=== PATIENT | female | born 1970 | race Hispanic/Latino ===

== ENCOUNTER 2020-10-28 18:56 | Inpatient (IN) | payer MEDICAID, OTHER ==
[2020-10-28] MEDS ORDERED: MORPHINE 4 MG/1 ML INJ IV ONE (19:41)
[2020-10-28] MEDS ORDERED: SODIUM CHLORIDE 0.9% 1000 ML 1,000 ML IV ONE (19:41)
[2020-10-28] MEDS ORDERED: ONDANSETRON 4 MG/2 ML INJ IV ONE (19:41)
--- NOTE | 2020-10-28 19:50 | Event Note ---
ED Screening Note Date of service: 10/28/20 Time: 19:49 ED Screening Note: 49-year-old female presents to the emergency room for acute right upper quadrant abdominal pain that radiates to her shoulder. Patient admits to nausea but no vomiting. Patient states that she recently traveled. Patient reports her pains a 9 out of 10. This initial assessment/diagnostic orders/clinical plan/treatment(s) is/are subject to change based on patients health status, clinical progression and re- assessment by fellow clinical providers in the ED. Further treatment and workup at subsequent clinical providers discretion. Patient/guardian urged not to elope from the ED as their condition may be serious if not clinically assessed and managed. Initial orders include: CBC CMP urinalysis lipase CT pelvis with contrast ordered IV normal saline morphine 4 mg Zofran 4 mg IV
[2020-10-28] MEDS ORDERED: HYDROmorphone 1 MG/1 ML INJ IV ONE ×2 (20:12→22:59)
[2020-10-28 20:55] LABS: Basophils % (Auto) 0.2 % (0.0-1.8); Eosinophils % (Auto) 0.1 % (0.0-4.3); Hematocrit 33.3 % (30.3-42.9); Hemoglobin 11.5 gm/dl (10.1-14.3); Lymphocytes # (Auto) 1.1 K/mm3 (1.2-5.4); Lymphocytes % (Auto) 5.9 % (13.4-35.0); Mean Corpuscular HGB Conc 35 % (30-34); Mean Corpuscular Volume 93 fl (79-97); Monocytes # (Auto) 0.7 K/mm3 (0.0-0.8); Platelet Count 348 K/mm3 (140-440); Red Blood Count 3.58 M/mm3 (3.65-5.03); Red Cell Distribution Width 12.1 % (13.2-15.2)
[2020-10-28 20:56] LABS: INR 1.04 (0.87-1.13)
--- NOTE | 2020-10-28 20:57 | Emergency Department Report ---
ED Abdominal Pain HPI - General Chief Complaint: Abdominal Pain Stated Complaint: RT RIB PAIN PUI?: No Time Seen by Provider: 10/28/20 20:02 Source: patient Mode of arrival: Ambulatory Limitations: No Limitations - History of Present Illness Initial Comments: The patient was evaluated in the emergency department for symptoms described in the history of present illness. He/she was evaluated in the context of the global COVID-19 pandemic, which necessitated consideration that the patient might be at risk for infection with the virus that causes COVID-19. Institutional protocols and algorithms that pertain to the evaluation of patients at risk for COVID-19 are in a state of rapid change based on information released by regulatory bodies including the CDC and federal and state organizations. These policies and algorithms were followed during the patient's care in the emergency department. Please note that these policies, procedures and recommendations changed on a rapid basis. Patient is a 49-year-old female who is not known to myself previously, who is currently visiting from [place], presenting to the ER today with complaint of right upper quadrant pain that radiates to the back, positive nausea. No heada rony or neck pain. No chest pain. The pain also involves her right shoulder. There is also right lower quadrant abdominal pain. No dysuria. Patient not sure if she is . No leg pain or leg swelling. Does not take oral contraceptives. No hematemesis of bright red blood per rectum. Has never had pain like this before. MD Complaint: abdominal pain -: Gradual, hour(s) Location: RUQ Radiation: back, other (Shoulder) Severity scale (0 -10): 6 Quality: aching, sharp Consistency: constant Improves With: rest Worsens With: movement Associated Symptoms: nausea, anorexia - Related Data Allergies Allergy/AdvReac Type Severity Reaction Status Date / Time No Known Allergies Allergy Verified 10/28/20 19:32 ED Review of Systems ROS: Stated complaint: RT RIB PAIN Other details as noted in HPI Constitutional: malaise Eyes: denies: eye discharge ENT: denies: congestion Respiratory: denies: shortness of breath, SOB with exertion, SOB at rest, wheezing Cardiovascular: denies: chest pain Gastrointestinal: abdominal pain, nausea Genitourinary: denies: dysuria Musculoskeletal: back pain Neurological: weakness Psychiatric: anxiety Hematological/Lymphatic: denies: easy bleeding ED Past Medical Hx - Past Medical History Previous Medical History?: No - Surgical History Past Surgical History?: Yes Additional Surgical History: - Social History Smoking Status: Never Smoker Substance Use Type: None ED Physical Exam - General Limitations: Physical Limitation General appearance: alert, anxious, in distress - Head Head exam: Present: atraumatic, normocephalic - Eye Eye exam: Present: normal appearance, EOMI. Absent: nystagmus - ENT ENT exam: Present: normal exam, normal orophraynx, mucous membranes moist, normal external ear exam - Neck Neck exam: Present: normal inspection, full ROM. Absent: tenderness, meningismus - Respiratory Respiratory exam: Present: normal lung sounds bilaterally. Absent: respiratory distress, wheezes, rales, rhonchi, stridor, decreased breath sounds - Cardiovascular Cardiovascular Exam: Present: normal rhythm, tachycardia, normal heart sounds. Absent: irregular rhythm, systolic murmur, diastolic murmur, rubs, gallop - GI/Abdominal GI/Abdominal exam: Present: soft, tenderness, guarding, rebound, other (There is right upper quadrant tenderness or right lower quadrant tenderness to deep palpation.). Absent: distended, rigid, pulsatile mass - Extremities Exam Extremities exam: Present: normal inspection, full ROM, other (2+ pulses noted in the bilateral upper and lower extremities. There is no palpable cord. negative Homans sign. Muscular compartments are soft. The pelvis is stable.). Absent: pedal edema, calf tenderness - Back Exam Back exam: Present: normal inspection, full ROM, CVA tenderness (R). Absent: tenderness, CVA tenderness (L), paraspinal tenderness, vertebral tenderness - Neurological Exam Neurological exam: Present: alert, other (No facial droop. Tongue midline. Extraocular movements intact bilaterally. Facial sensation intact to light touch in V1, V2, V3 distribution bilaterally. 5 and a 5 strength in 4 extremiti es. Sensation intact to light touch in 4 extremities.) - Psychiatric Psychiatric exam: Present: anxious - Skin Skin exam: Present: warm, dry, intact, normal color. Absent: rash ED Course Vital Signs 10/28/20 10/28/20 19:26 20:48 Temperature 99.0 F 98.3 F Pulse Rate 85 78 Respiratory 18 15 Rate Blood Pressure 119/81 Blood Pressure 139/86 [Left] O2 Sat by Pulse 97 99 Oximetry - Reevaluation(s) Reevaluation #1: 10/28/20 20:56 Differential diagnosis, including but limited to: Cholecystitis, appendicitis, colitis, diverticulitis, renal colic, perforated viscus, perforated diaphragmatic pain Assessment and plan: 49-year-old female, who is afebrile, with reassuring vital signs, not currently tachycardic, tachypneic or hypoxic, PERC negative, with exquisite right-sided abdominal pain, and probable diaphragmatic irritation. I performed transabdominal bedside ultrasound, question of free fluid noted in the hepatic cul-de-sac, patient very tender, not able to tolerate complete examination. We will place IV, start IV fluids, make n.p.o., obtain x-ray the chest, EKG, and emergent CT scan of the abdomen pelvis. Have discussed this plan of care with the patient, who verbalized understanding, and who is amenable to this plan of care. Very high suspicion for intra-abdominal surgical process. 10/28/20 23:00 Patient reassessed multiple times. CT scan shows perirectal abscess. X-ray the chest is clear. We have recommended admission to the medical service with general surgical consultation, for fluids, antibiotics, and supportive care. Page is placed out to general surgery on-call. We are waiting for them to call back. I updated the patient on her laboratory studies, and CT scan findings. She is amenable to hospitalization and admission. We are waiting for general surgical callback. 10/28/20 23:09 Discussed history, physical, pertinent laboratory studies and imaging findings with general surgery on-call, Dr. Johnson. She will see the patient in the morning, and is agreeable with the current plan of care. Admission to the medical service will be undertaken. The internal medicine physician, Dr. Chiang has agreed to admit the patient to his service with general surgery consultation. - Consultations Consultation #1: 10/28/20 23:11 Discussed history, physical, laboratory studies and imaging findings with Dr. Johnson, general surgeon of record. She will follow in consultation ED Medical Decision Making - Lab Data Result diagrams: 10/28/20 Unknown 10/28/20 Unknown Vital Signs 10/28/20 10/28/20 19:26 20:48 Temperature 99.0 F 98.3 F Pulse Rate 85 78 Respiratory 18 15 Rate Blood Pressure 119/81 Blood Pressure 139/86 [Left] O2 Sat by Pulse 97 99 Oximetry Lab Results 10/28/20 10/28/20 Range/Units Unknown Unknown WBC 18.5 H (4.5-11.0) K/mm3 RBC 3.58 L (3.65-5.03) M/mm3 Hgb 11.5 (10.1-14.3) gm/dl Hct 33.3 (30.3-42.9) % MCV 93 (79-97) fl MCH 32 (28-32) pg MCHC 35 H (30-34) % RDW 12.1 L (13.2-15.2) % Plt Count 348 (140-440) K/mm3 Lymph % (Auto) 5.9 L (13.4-35.0) % [place] % (Auto) 4.0 (0.0-7.3) % Eos % (Auto) 0.1 (0.0-4.3) % Baso % (Auto) 0.2 (0.0-1.8) % Lymph # (Auto) 1.1 L (1.2-5.4) K/mm3 [place] # (Auto) 0.7 (0.0-0.8) K/mm3 Eos # (Auto) 0.0 (0.0-0.4) K/mm3 Baso # (Auto) 0.0 (0.0-0.1) K/mm3 Seg Neutrophils % 89.8 H (40.0-70.0) % Seg Neutrophils # 16.6 H (1.8-7.7) K/mm3 PT 13.4 (12.2-14.9) Sec. INR 1.04 (0.87-1.13) - EKG Data -: EKG Interpreted by Ut EKG shows normal: sinus rhythm Rate: normal - EKG Data 10/28/20 20:56 Sinus rhythm, 75 bpm, normal axis, normal intervals, QTC within normal limits, motion artifact. There is poor R wave progression. The EKG is abnormal. The EKG is not a STEMI. - Radiology Data Radiology results: pending, report reviewed, image reviewed CT ABDOMEN AND PELVIS WITH CONTRAST INDICATION / CLINICAL INFORMATION: right sided abd pain. TECHNIQUE: Axial CT images were obtained through the abdomen and pelvis after IV contrast. All CT scans at this location are performed using CT dose reduction for ALARA by means of automated exposure control. COMPARISON: None available. FINDINGS: LOWER CHEST: No significant abnormality. LIVER: No significant abnormality. GALLBLADDER: No significant abnormality. BILE DUCTS: No significant abnormality. PANCREAS: No significant abnormality. SPLEEN: No significant abnormality. ADRENALS: No significant abnormality. RIGHT KIDNEY / URETER: No significant abnormality. LEFT KIDNEY / URETER: Small simple renal cyst noted on the left. STOMACH / SMALL BOWEL: No significant abnormality. No mechanical bowel structure. COLON: There is a 2.9 x 2.1 cm complex fluid collection adjacent to the sigmoid colon/rectal vault on the right (series 2 image 137). APPENDIX: No significant abnormality. PERITONEUM: No pneumoperitoneum. LYMPH NODES: No significant adenopathy. AORTA / ARTERIES: No significant abnormality. IVC / VEINS: No significant abnormality. URINARY BLADDER: No significant abnormality. REPRODUCTIVE ORGANS: Physiologic changes are noted of the uterus and bilateral ovaries. ADDITIONAL FINDINGS: None. SKELETAL SYSTEM: No significant abnormality. IMPRESSION: 1. Well-formed complex fluid collection adjacent to the rectal vault (2.9 x 2.1 cm) on the right with adjacent inflammatory changes and fat stranding is concerning for developing perirectal abscess (series 2 image 137). Signer Name: Vince Browne MD Signed: 10/28/2020 9:44 PM Workstation Name: [id number] Critical care attestation.: If time is entered above; I have spent that time in minutes in the direct care of this critically ill patient, excluding procedure time. ED Disposition Clinical Impression: Acute abdominal pain, Perirectal abscess Disposition: OP ADMIT IP TO THIS HOSP Is pt being admited?: Yes Condition: Good Instructions: Abdominal Pain (ED) Referrals: PRIMARY CARE, [Referring] - 3-5 Days
[2020-10-28 21:04] LABS: Alanine Aminotransferase 7 units/L (7-56); Albumin 4.3 g/dL (3.9-5); Blood Urea Nitrogen 11 mg/dL (7-17); Calcium 9.7 mg/dL (8.4-10.2); Hemolysis Index 0
[2020-10-28 21:06] LABS: BUN/Creatinine Ratio 18
--- NOTE | 2020-10-28 22:04 | XRay Report ---
CHEST 1 VIEW 10/28/2020 8:46 PM INDICATION / CLINICAL INFORMATION: pleuritic pain. COMPARISON: None available. FINDINGS: SUPPORT DEVICES: None. HEART / MEDIASTINUM: No significant abnormality. LUNGS / PLEURA: No significant pulmonary or pleural abnormality. No pneumothorax. ADDITIONAL FINDINGS: No significant additional findings. Prominent bilateral nipple shadows are noted . IMPRESSION: 1. No acute findings. Signer Name: Vince Browne MD Signed: 10/28/2020 10:00 PM Workstation Name: [id number]
--- NOTE | 2020-10-28 22:48 | Cat Scan Report ---
CT ABDOMEN AND PELVIS WITH CONTRAST INDICATION / CLINICAL INFORMATION: right sided abd pain. TECHNIQUE: Axial CT images were obtained through the abdomen and pelvis after IV contrast. All CT scans at this location are performed using CT dose reduction for ALARA by means of automated exposure control. COMPARISON: None available. FINDINGS: LOWER CHEST: No significant abnormality. LIVER: No significant abnormality. GALLBLADDER: No significant abnormality. BILE DUCTS: No significant abnormality. PANCREAS: No significant abnormality. SPLEEN: No significant abnormality. ADRENALS: No significant abnormality. RIGHT KIDNEY / URETER: No significant abnormality. LEFT KIDNEY / URETER: Small simple renal cyst noted on the left. STOMACH / SMALL BOWEL: No significant abnormality. No mechanical bowel structure. COLON: There is a 2.9 x 2.1 cm complex fluid collection adjacent to the sigmoid colon/rectal vault on the right (series 2 image 137). APPENDIX: No significant abnormality. PERITONEUM: No pneumoperitoneum. LYMPH NODES: No significant adenopathy. AORTA / ARTERIES: No significant abnormality. IVC / VEINS: No significant abnormality. URINARY BLADDER: No significant abnormality. REPRODUCTIVE ORGANS: Physiologic changes are noted of the uterus and bilateral ovaries. ADDITIONAL FINDINGS: None. SKELETAL SYSTEM: No significant abnormality. IMPRESSION: 1. Well-formed complex fluid collection adjacent to the rectal vault (2.9 x 2.1 cm) on the right with adjacent inflammatory changes and fat stranding is concerning for developing perirectal abscess (ser ies 2 image 137). Signer Name: Vince Browne MD Signed: 10/28/2020 10:44 PM Workstation Name: [id number]
[2020-10-28] MEDS ORDERED: ERTAPENEM 1 GM in SODIUM CHLORIDE 0.9% 50 ML IV ONE (22:56)
[2020-10-28] MEDS ORDERED: ACETAMINOPHEN 325 MG TAB PO PRN (23:34)
--- NOTE | 2020-10-28 23:42 | History and Physical Report ---
History of Present Illness Date of examination: 10/28/20 Chief complaint: Acute abdominal pain History of present illness: 49-year-old female who is currently visiting from [place] was brought to the ER today with complaint of right upper quadrant pain that radiates to the back. The pain also involves her right shoulder. There is also right lower quadrant abdominal pain. Patient complained of mild nausea, no dysuria. Patient not sure if she is . No leg pain or leg swelling. Does not take oral contraceptives. No hematemesis of bright red blood per rectum. In the emergency room CT scan of the abdomen shows perirectal abscess Medications and Allergies Allergies Allergy/AdvReac Type Severity Reaction Status Date / Time No Known Allergies Allergy Verified 10/28/20 19:32 Active Meds: Active Medications Acetaminophen (Acetaminophen 325 Mg Tab) 650 mg PO Q4H PRN PRN Reason: Pain MILD(1-3)/Fever >100.5/MCALLISTER Famotidine (Famotidine 20 Mg/2 Ml Inj) 20 mg IV BID MOISÉS Dextrose/Sodium Chloride (D5/0.45ns) 1,000 mls @ 100 mls/hr IV DIRECT MOISÉS Piperacillin Sod/Tazobactam Sod (Zosyn/Ns 4.5gm/100ml) 4.5 gm in 100 mls @ 200 mls/hr IV Q8H MOISÉS; Protocol Morphine Sulfate (Morphine 2 Mg/1 Ml Inj) 2 mg IV Q4H PRN PRN Reason: Pain, Moderate (4-6) Ondansetron HCl (Ondansetron 4 Mg/2 Ml Inj) 4 mg IV Q8H PRN PRN Reason: Nausea And Vomiting Sodium Chloride (Sodium Chloride 0.9% 10 Ml Flush Syringe) 10 ml IV BID MOISÉS Sodium Chloride (Sodium Chloride 0.9% 10 Ml Flush Syringe) 10 ml IV PRN PRN PRN Reason: LINE FLUSH Review of Systems Cardiovascular: no chest pain, no orthopnea, no palpitations, no lightheadedness, no shortness of breath Respiratory: no cough, no cough with sputum Gastrointestinal: abdominal pain, nausea Exam - Constitutional Vitals: Temp Pulse Resp BP Pulse Ox 98 F 74 11 L 123/81 98 10/28/20 23:12 10/28/20 23:12 10/28/20 23:12 10/28/20 23:12 10/28/20 23:12 General appearance: Present: no acute distress - EENT Eyes: Present: PERRL ENT: hearing intact, clear oral mucosa - Neck Neck: Present: supple, normal ROM - Respiratory Respiratory effort: normal Respiratory: bilateral: CTA - Cardiovascular Heart Sounds: Present: S1 & S2. Absent: rub, click - Extremities Extremities: pulses symmetrical, No edema Peripheral Pulses: within normal limits - Abdominal General gastrointestinal: Present: soft, tender, normal bowel sounds Localized gastrointestinal: tender: RUQ Female genitourinary: Present: normal - Integumentary Integumentary: Present: clear, warm, dry - Musculoskeletal Musculoskeletal: gait normal, strength equal bilaterally - Psychiatric Psychiatric: appropriate mood/affect, intact judgment & insight - Neurologic Neurologic: CNII-XII intact, moves all extremities Results - Labs CBC & Chem 7: 10/28/20 Unknown 10/28/20 Unknown Labs: Laboratory Last Values WBC 18.5 K/mm3 (4.5-11.0) H 10/28/20 Unknown RBC 3.58 M/mm3 (3.65-5.03) L 10/28/20 Unknown Hgb 11.5 gm/dl (10.1-14.3) 10/28/20 Unknown Hct 33.3 % (30.3-42.9) 10/28/20 Unknown MCV 93 fl (79-97) 10/28/20 Unknown MCH 32 pg (28-32) 10/28/20 Unknown MCHC 35 % (30-34) H 10/28/20 Unknown RDW 12.1 % (13.2-15.2) L 10/28/20 Unknown Plt Count 348 K/mm3 (140-440) 10/28/20 Unknown Lymph % (Auto) 5.9 % (13.4-35.0) L 10/28/20 Unknown [place] % (Auto) 4.0 % (0.0-7.3) 10/28/20 Unknown Eos % (Auto) 0.1 % (0.0-4.3) 10/28/20 Unknown Baso % (Auto) 0.2 % (0.0-1.8) 10/28/20 Unknown Lymph # (Auto) 1.1 K/mm3 (1.2-5.4) L 10/28/20 Unknown [place] # (Auto) 0.7 K/mm3 (0.0-0.8) 10/28/20 Unknown Eos # (Auto) 0.0 K/mm3 (0.0-0.4) 10/28/20 Unknown Baso # (Auto) 0.0 K/mm3 (0.0-0.1) 10/28/20 Unknown Seg Neutrophils % 89.8 % (40.0-70.0) H 10/28/20 Unknown Seg Neutrophils # 16.6 K/mm3 (1.8-7.7) H 10/28/20 Unknown PT 13.4 Sec. (12.2-14.9) 10/28/20 Unknown INR 1.04 (0.87-1.13) 10/28/20 Unknown Sodium 140 mmol/L (137-145) 10/28/20 Unknown Potassium 3.6 mmol/L (3.6-5.0) 10/28/20 Unknown Chloride 100.9 mmol/L (98-107) 10/28/20 Unknown Carbon Dioxide 26 mmol/L (22-30) 10/28/20 Unknown Anion Gap 17 mmol/L 10/28/20 Unknown BUN 11 mg/dL (7-17) 10/28/20 Unknown Creatinine 0.6 mg/dL (0.6-1.2) 10/28/20 Unknown Estimated GFR > 60 ml/min 10/28/20 Unknown BUN/Creatinine Ratio 18 % 10/28/20 Unknown Glucose 115 mg/dL (65-100) H 10/28/20 Unknown Calcium 9.7 mg/dL (8.4-10.2) 10/28/20 Unknown Total Bilirubin 0.30 mg/dL (0.1-1.2) 10/28/20 Unknown AST 10 units/L (5-40) 10/28/20 Unknown ALT 7 units/L (7-56) 10/28/20 Unknown Alkaline Phosphatase 71 units/L (35-129) 10/28/20 Unknown Total Protein 7.0 g/dL (6.3-8.2) 10/28/20 Unknown Albumin 4.3 g/dL (3.9-5) 10/28/20 Unknown Albumin/Globulin Ratio 1.6 % 10/28/20 Unknown Lipase 20 units/L (13-60) 10/28/20 Unknown HCG, Quant < 4.0 mIU/mL (0-4) 10/28/20 Unknown - Imaging and Cardiology CT scan - abdomen: image reviewed Assessment and Plan - Patient Problems (1) Acute abdominal pain Current Visit: Yes Status: Acute Plan to address problem: Admit the patient to the medical telemetry. N.p.o. IV fluid D5 half-normal saline at the rate of 100 cc/h. Pepcid 20 mg IV every 12 hours. Morphine 2 mg IV every 4 hours as needed. Zofran 4 mg IV every 6 hours as needed. Zosyn 4.5 g IV every 8 hours. Metronidazole 500 mg IV every 8 hours. We consulted surgery for further evaluation and treatment. SCD for DVT prophylaxis. Pepcid for GI prophylaxis. Recheck CBC BMP in the morning (2) Perirectal abscess Current Visit: Yes Status: Acute Plan to address problem: Admit the patient to the medical telemetry. N.p.o. IV fluid D5 half-normal sali ne at the rate of 100 cc/h. Pepcid 20 mg IV every 12 hours. Morphine 2 mg IV every 4 hours as needed. Zofran 4 mg IV every 6 hours as needed. Zosyn 4.5 g IV every 8 hours. Metronidazole 500 mg IV every 8 hours. We consulted surgery for further evaluation and treatment. SCD for DVT prophylaxis. Pepcid for GI prophylaxis. Recheck CBC BMP in the morning
[2020-10-29] MEDS ORDERED: HYDROmorphone 1 MG/1 ML INJ IV ONE (00:20)
[2020-10-29] MEDS ORDERED: METOCLOPRAMIDE 10 MG/2 ML INJ IV ONE (00:20)
[2020-10-29] MEDS: ONDANSETRON 4 MG/2 ML INJ IV PRN ×2 (00:28→04:26)
[2020-10-29] MEDS: PIPERACIL/TAZOBACTA 4.5/NS 100 4.5 GM/100 ML VIAL IV SCH ×3 (01:30→16:37)
[2020-10-29] MEDS: metroNIDAZOLE/NS 500 MG/100 ML 500 MG/100 ML BAG IV SCH ×2 (02:55→09:41)
[2020-10-29] MEDS: D5W/0.45% NACL 1,000 ML IV SCH ×2 (04:21→14:37)
[2020-10-29] MEDS: MORPHINE 2 MG/1 ML INJ IV PRN (04:22)
[2020-10-29 06:36] LABS: Basophils # (Auto) 0.1 K/mm3 (0.0-0.1); Basophils % (Auto) 0.5 % (0.0-1.8); Eosinophils % (Auto) 0.3 % (0.0-4.3); Hematocrit 31.4 % (30.3-42.9); Hemoglobin 10.6 gm/dl (10.1-14.3); Lymphocytes # (Auto) 1.1 K/mm3 (1.2-5.4); Lymphocytes % (Auto) 8.7 % (13.4-35.0); Mean Corpuscular HGB Conc 34 % (30-34); Mean Corpuscular Volume 95 fl (79-97); Monocytes # (Auto) 0.5 K/mm3 (0.0-0.8); Monocytes % (Auto) 3.9 % (0.0-7.3); Platelet Count 301 K/mm3 (140-440); Red Blood Count 3.32 M/mm3 (3.65-5.03); Red Cell Distribution Width 12.3 % (13.2-15.2)
[2020-10-29 06:57] LABS: Blood Urea Nitrogen 10 mg/dL (7-17); Calcium 8.9 mg/dL (8.4-10.2); Hemolysis Index 4
[2020-10-29 06:58] LABS: BUN/Creatinine Ratio 17
[2020-10-29] MEDS: FAMOTIDINE 20 MG/2 ML INJ IV SCH ×2 (09:41→22:00)
--- NOTE | 2020-10-29 10:57 | Event Note ---
Date: 10/29/20 NPO after MN except sips of water with meds. Reviewed CT scan. Fluid is NOT well organized. Fluid is partially loculated pelvic fluid near the uterus. Per Dr. Johnson, history of abnormal discharge from the vagina. Consider pelvic ultrasound with transvaginal ultrasound. ?PID CT guided drainage/aspiration of the pelvic fluid collection tomorrow.
--- NOTE | 2020-10-29 11:11 | Consultation ---
History of Present Illness Consult date: 10/29/20 Reason for consult: abdominal pain Chief complaint: abdominal pain - History of present illness History of present illness: 49 year old female who presented to the ED with a two day hx of worsening abdomi nal pain that she says is most severe in the RUQ that radiates to her right shoulder. She was having some RLQ abdominal pain and was seen by a wheat grower because she has having green discharge from her vagina about a week ago for which she was placed on abx. She says that the discharge was cultured and to her knowledge did not grow anything. the discharge returned. She denies rectal or buttock pain. She had a CT scan that was read as having a 2x3cm abscess by in between the rectum and sigmoid colon. Past History Past Medical History: other (endometriosis) Past Surgical History: Social history: no significant social history Medications and Allergies Allergies Allergy/AdvReac Type Severity Reaction Status Date / Time No Known Allergies Allergy Verified 10/28/20 19:32 Home Medications Medication Instructions Recorded Confirmed Last Taken Type No Known Home Medications [No 10/29/20 10/29/20 Unknown History Reported Home Medications] Active Meds: Active Medications Acetaminophen (Acetaminophen 325 Mg Tab) 650 mg PO Q4H PRN PRN Reason: Pain MILD(1-3)/Fever >100.5/MCALLISTER Famotidine (Famotidine 20 Mg/2 Ml Inj) 20 mg IV BID [facility] Last Admin: 10/29/20 09:41 Dose: 20 mg Documented by: Dextrose/Sodium Chloride (D5/0.45ns) 1,000 mls @ 100 mls/hr IV DIRECT MOISÉS Last Admin: 10/29/20 04:21 Dose: 100 mls/hr Documented by: Piperacillin Sod/Tazobactam Sod (Zosyn/Ns 4.5gm/100ml) 4.5 gm in 100 mls @ 200 mls/hr IV Q8H MOISÉS; Protocol Last Admin: 10/29/20 09:40 Dose: 200 mls/hr Documented by: Ketorolac Tromethamine (Ketorolac 30 Mg/1 Ml Inj) 30 mg IV Q6HR MOISÉS Stop: 11/03/20 11:59 Morphine Sulfate (Morphine 2 Mg/1 Ml Inj) 2 mg IV Q4H PRN PRN Reason: Pain, Moderate (4-6) Last Admin: 10/29/20 04:22 Dose: 2 mg Documented by: Ondansetron HCl (Ondansetron 4 Mg/2 Ml Inj) 4 mg IV Q8H PRN PRN Reason: Nausea And Vomiting Last Admin: 10/29/20 04:26 Dose: 4 mg Documented by: Sodium Chloride (Sodium Chloride 0.9% 10 Ml Flush Syringe) 10 ml IV BID MOISÉS Last Admin: 10/29/20 09:41 Dose: 10 ml Documented by: Sodium Chloride (Sodium Chloride 0.9% 10 Ml Flush Syringe) 10 ml IV PRN PRN PRN Reason: LINE FLUSH Review of Systems - Constitutional no weight loss, no fever, no chills - Cardiovascular no chest pain - Respiratory no cough - Gastrointestinal abdominal pain, no nausea, no vomiting Exam Vital Signs Temp Pulse Resp BP Pulse Ox 99.0 F 85 18 119/81 97 10/28/20 19:26 10/28/20 19:26 10/28/20 19:26 10/28/20 19:26 10/28/20 19:26 - General physical appearance Positive: well developed, no distress, moderate pain - Respiratory Positive: normal expansion - Cardiovascular Rhythm: regular - Extremities Extremities: no ischemia - Abdomen Abdomen: Present: soft, other (mild tenderness in the right lower quadrant. tender to palaption in the RUQ, right costal area.). Absent: guarding, rigid Results - Labs 10/29/20 05:51 10/29/20 05:51 Abnormal lab results 10/28/20 10/28/20 10/29/20 Range/Units Unknown Unknown 01:09 WBC 18.5 H (4.5-11.0) K/mm3 RBC 3.58 L (3.65-5.03) M/mm3 MCHC 35 H (30-34) % RDW 12.1 L (13.2-15.2) % Lymph % (Auto) 5.9 L (13.4-35.0) % Lymph # (Auto) 1.1 L (1.2-5.4) K/mm3 Seg Neutrophils % 89.8 H (40.0-70.0) % Seg Neutrophils # 16.6 H (1.8-7.7) K/mm3 Glucose 115 H (65-100) mg/dL Lactic Acid 0.50 L (0.7-2.0) mmol/L 10/29/20 10/29/20 Range/Units 05:51 05:51 WBC 12.1 H (4.5-11.0) K/mm3 RBC 3.32 L (3.65-5.03) M/mm3 MCHC (30-34) % RDW 12.3 L (13.2-15.2) % Lymph % (Auto) 8.7 L (13.4-35.0) % Lymph # (Auto) 1.1 L (1.2-5.4) K/mm3 Seg Neutrophils % 86.6 H (40.0-70.0) % Seg Neutrophils # 10.5 H (1.8-7.7) K/mm3 Glucose 144 H (65-100) mg/dL Lactic Acid (0.7-2.0) mmol/L Diabetes panel 10/28/20 10/29/20 Range/Units Unknown 05:51 Sodium 140 142 (137-145) mmol/L Potassium 3.6 3.6 (3.6-5.0) mmol/L Chloride 100.9 104.6 (98-107) mmol/L Carbon Dioxide 26 28 (22-30) mmol/L BUN 11 10 (7-17) mg/dL Creatinine 0.6 0.6 (0.6-1.2) mg/dL Glucose 115 H 144 H (65-100) mg/dL Calcium 9.7 8.9 (8.4-10.2) mg/dL AST 10 (5-40) units/L ALT 7 (7-56) units/L Alkaline Phosphatase 71 (35-129) units/L Total Protein 7.0 (6.3-8.2) g/dL Albumin 4.3 (3.9-5) g/dL Calcium panel 10/28/20 10/29/20 Range/Units Unknown 05:51 Calcium 9.7 8.9 (8.4-10.2) mg/dL Albumin 4.3 (3.9-5) g/dL Pituitary panel 10/28/20 10/29/20 Range/Units Unknown 05:51 Sodium 140 142 (137-145) mmol/L Potassium 3.6 3.6 (3.6-5.0) mmol/L Chloride 100.9 104.6 (98-107) mmol/L Carbon Dioxide 26 28 (22-30) mmol/L BUN 11 10 (7-17) mg/dL Creatinine 0.6 0.6 (0.6-1.2) mg/dL Glucose 115 H 144 H (65-100) mg/dL Calcium 9.7 8.9 (8.4-10.2) mg/dL Adrenal panel 10/28/20 10/29/20 Range/Units Unknown 05:51 Sodium 140 142 (137-145) mmol/L Potassium 3.6 3.6 (3.6-5.0) mmol/L Chloride 100.9 104.6 (98-107) mmol/L Carbon Dioxide 26 28 (22-30) mmol/L BUN 11 10 (7-17) mg/dL Creatinine 0.6 0.6 (0.6-1.2) mg/dL Glucose 115 H 144 H (65-100) mg/dL Calcium 9.7 8.9 (8.4-10.2) mg/dL Total Bilirubin 0.30 (0.1-1.2) mg/dL AST 10 (5-40) units/L ALT 7 (7-56) units/L Alkaline Phosphatase 71 (35-129) units/L Total Protein 7.0 (6.3-8.2) g/dL Albumin 4.3 (3.9-5) g/dL - Imaging CT scan - abdomen: report reviewed, image reviewed CT scan - pelvis: report reviewed, image reviewed Assessment and Plan 49 year old female with right upper and lower quadrant pain. unclear etiology. Afebrile stable with decreasing leukocytosis. I spoke with Dr. Gurrola (IR) to review images for possible IR drainage, as there are no clinical signs of abscess collection able to be drained from the perineum, also she has no pain, swelling or drainage in the area. He evaluated the images and disagrees with the overnight read. He said there is no loculated per-rectal abscess, or colon-rectal inflammation. He did notice some fluid in the pelvis that is amorphous and could be blood vs other fluid but suspects it to be drafter commercial in etiology. He noted the gallbladder looked unremarkable with no signs if inflammation. He asked that i get a pelvic US today to further study the pelvis and he will take down tomorrow for aspiration of the fluid. discussed with pt who is agre eable with the plan. continue abx. No surgical intervention planned at this time will continue to zeyad villalpando.
[2020-10-29 11:42] LABS: Bilirubin,Urine NEG (Negative); Blood,Urine NEG (Negative); Color,Urine Yellow (Yellow); Mucus,Urine FEW /HPF; Urobilinogen,Urine < 2.0 mg/dL (<2.0)
[2020-10-29 11:47] LABS: WBC,Urine > 182.0 /HPF (0.0-6.0)
[2020-10-29] MEDS: KETOROLAC 30 MG/1 ML INJ IV SCH ×2 (14:37→18:45)
--- NOTE | 2020-10-29 15:59 | Progress Note ---
Assessment and Plan Assessment and plan: 49-year-old female who is currently visiting from [place] was brought to the ER today with complaint of right upper quadrant pain that radiates to the back. The pain also involves her right shoulder. There is also right lower quadrant abdominal pain. Patient complained of mild nausea, no dysuria. Patient not sure if she is . No leg pain or leg swelling. Does not take oral contraceptives. No hematemesis of bright red blood per rectum. In the emergency room CT scan of the abdomen shows perirectal abscess 10/29: Patient to be evaluated by surgery and interventional radiology. 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 Nevertheless an ultrasound of the pelvic is being obtained and possible aspiration of fluids tomorrow. We will continue with antibiotics at this point no surgical intervention otherwise planned at this time. Patient denies any past medical condition denies use of any home medication. Plan of care discussed with the patient in detail patient verbalized understanding. (1) Acute abdominal pain Current Visit: Yes Status: Acute Plan to address problem: Patient was admitted to the hospital started on antibiotics and fluids as documented. Pepcid 20 mg IV every 12 hours. Morphine 2 mg IV every 4 hours as needed. Zofran 4 mg IV every 6 hours as needed. Zosyn 4.5 g IV every 8 hours. Metronidazole 500 mg IV every 8 hours. We consulted surgery for further evaluation and treatment. SCD for DVT prophylaxis. Pepcid for GI prophylaxis. Recheck CBC BMP in the morning (2) Perirectal abscess Current Visit: Yes Status: Acute Plan to address problem: (3) DVT and GI prophylaxis History Interval history: Patient seen and examined, continued with mild abdominal discomfort. Otherwise no fever noted. Hospitalist Physical - Physical exam Narrative exam: VITAL SIGNS: Reviewed. GENERAL: The patient appears normally developed, mild cachexia vital signs as documented. HEAD: No signs of head trauma. EYES: Pupils are equal. Extraocular motions intact. EARS: Hearing grossly intact. MOUTH: Oropharynx is normal. NECK: No adenopathy, no JVD. CHEST: Chest with clear breath sounds bilaterally. No wheezes, rales, or rhonchi. CARDIAC: Regular rate and rhythm. S1 and S2, without murmurs, gallops, or rubs. VASCULAR: No Edema. Peripheral pulses normal and equal in all extremities. ABDOMEN: Soft, mild tenderness but non distended. No rebound or guarding, and no masses palpated. Bowel Sounds normal. MUSCULOSKELETAL: Good range of motion of all major joints. Extremities without clubbing, cyanosis or edema. NEUROLOGIC EXAM: Alert and oriented x 3 No focal sensory or strength deficits. Speech normal. Follows commands. PSYCHIATRIC: Mood normal. SKIN: detail exam as documented in skin assessment - Constitutional Vitals: Temp Pulse Resp BP Pulse Ox 98.3 F 64 16 117/65 100 10/29/20 12:14 10/29/20 12:14 10/29/20 12:14 10/29/20 12:14 10/29/20 12:14 General appearance: Present: no acute distress Results - Labs CBC & Chem 7: 10/29/20 05:51 10/29/20 05:51 Labs: Laboratory Last Values WBC 12.1 K/mm3 (4.5-11.0) H 10/29/20 05:51 RBC 3.32 M/mm3 (3.65-5.03) L 10/29/20 05:51 Hgb 10.6 gm/dl (10.1-14.3) 10/29/20 05:51 Hct 31.4 % (30.3-42.9) 10/29/20 05:51 MCV 95 fl (79-97) 10/29/20 05:51 MCH 32 pg (28-32) 10/29/20 05:51 MCHC 34 % (30-34) 10/29/20 05:51 RDW 12.3 % (13.2-15.2) L 10/29/20 05:51 Plt Count 301 K/mm3 (140-440) 10/29/20 05:51 Lymph % (Auto) 8.7 % (13.4-35.0) L 10/29/20 05:51 [place] % (Auto) 3.9 % (0.0-7.3) 10/29/20 05:51 Eos % (Auto) 0.3 % (0.0-4.3) 10/29/20 05:51 Baso % (Auto) 0.5 % (0.0-1.8) 10/29/20 05:51 Lymph # (Auto) 1.1 K/mm3 (1.2-5.4) L 10/29/20 05:51 [place] # (Auto) 0.5 K/mm3 (0.0-0.8) 10/29/20 05:51 Eos # (Auto) 0.0 K/mm3 (0.0-0.4) 10/29/20 05:51 Baso # (Auto) 0.1 K/mm3 (0.0-0.1) 10/29/20 05:51 Seg Neutrophils % 86.6 % (40.0-70.0) H 10/29/20 05:51 Seg Neutrophils # 10.5 K/mm3 (1.8-7.7) H 10/29/20 05:51 PT 13.4 Sec. (12.2-14.9) 10/28/20 Unknown INR 1.04 (0.87-1.13) 10/28/20 Unknown Sodium 142 mmol/L (137-145) 10/29/20 05:51 Potassium 3.6 mmol/L (3.6-5.0) 10/29/20 05:51 Chloride 104.6 mmol/L (98-107) 10/29/20 05:51 Carbon Dioxide 28 mmol/L (22-30) 10/29/20 05:51 Anion Gap 13 mmol/L 10/29/20 05:51 BUN 10 mg/dL (7-17) 10/29/20 05:51 Creatinine 0.6 mg/dL (0.6-1.2) 10/29/20 05:51 Estimated GFR > 60 ml/min 10/29/20 05:51 BUN/Creatinine Ratio 17 % 10/29/20 05:51 Glucose 144 mg/dL (65-100) H 10/29/20 05:51 Lactic Acid 0.50 mmol/L (0.7-2.0) L 10/29/20 01:09 Calcium 8.9 mg/dL (8.4-10.2) 10/29/20 05:51 Total Bilirubin 0.30 mg/dL (0.1-1.2) 10/28/20 Unknown AST 10 units/L (5-40) 10/28/20 Unknown ALT 7 units/L (7-56) 10/28/20 Unknown Alkaline Phosphatase 71 units/L (35-129) 10/28/20 Unknown Total Protein 7.0 g/dL (6.3-8.2) 10/28/20 Unknown Albumin 4.3 g/dL (3.9-5) 10/28/20 Unknown Albumin/Globulin Ratio 1.6 % 10/28/20 Unknown Lipase 20 units/L (13-60) 10/28/20 Unknown HCG, Quant < 4.0 mIU/mL (0-4) 10/28/20 Unknown Urine Color Yellow (Yellow) 10/29/20 Unknown Urine Turbidity Cloudy (Clear) 10/29/20 Unknown Urine pH 6.0 (5.0-7.0) 10/29/20 Unknown Ur Specific [place] 1.029 (1.003-1.030) 10/29/20 Unknown Urine Protein 30 mg/dl mg/dL (Negative) 10/29/20 Unknown Urine Glucose (UA) Neg mg/dL (Negative) 10/29/20 Unknown Urine Ketones 20 mg/dL (Negative) 10/29/20 Unknown Urine Blood Neg (Negative) 10/29/20 Unknown Urine Nitrite Neg (Negative) 10/29/20 Unknown Urine Bilirubin Neg (Negative) 10/29/20 Unknown Urine Urobilinogen < 2.0 mg/dL (<2.0) 10/29/20 Unknown Ur Leukocyte Esterase Lg (Negative) 10/29/20 Unknown Urine WBC (Auto) > 182.0 /HPF (0.0-6.0) H 10/29/20 Unknown Urine RBC (Auto) 6.0 /HPF (0.0-6.0) 10/29/20 Unknown U Epithel Cells (Auto) 2.0 /HPF (0-13.0) 10/29/20 Unknown Urine WBC Clumps 2+ /HPF 10/29/20 Unknown Urine Mucus Few /HPF 10/29/20 Unknown Blood Type A POSITIVE 10/29/20 01:11 Antibody Screen Negative 10/29/20 01:11 Microbiology: Microbiology 10/29/20 01:09 Peripheral/Venous Blood Culture - Preliminary Culture in Progress 10/29/20 01:44 Peripheral/Venous Blood Culture - Preliminary Culture in Progress Garrett/IV: Voiding Method Toilet Active Medications - Current Medications Current Medications: Generic Name Dose Route Start Last Admin Trade Name Freq PRN Reason Stop Dose Admin Acetaminophen 650 mg 10/28/20 23:34 Acetaminophen 325 Mg Tab PO Q4H PRN Pain MILD(1-3)/Fever >100.5/MCALLISTER Famotidine 20 mg 10/29/20 08:00 10/29/20 09:41 Famotidine 20 Mg/2 Ml Inj IV 20 mg BID MOISÉS Administration Dextrose/Sodium Chloride 1,000 mls @ 100 mls/hr 10/28/20 23:45 10/29/20 14:37 D5/0.45ns IV 100 mls/hr DIRECT MOISÉS Administration Piperacillin Sod/Tazobactam Sod 4.5 gm in 100 mls @ 200 mls/hr 10/29/20 00:00 10/29/20 09:40 Zosyn/Ns 4.5gm/100ml IV 200 mls/hr Q8H MOISÉS Administration Protocol Ketorolac Tromethamine 30 mg 10/29/20 12:00 10/29/20 14:37 Ketorolac 30 Mg/1 Ml Inj IV 11/03/20 11:59 30 mg Q6HR MOISÉS Administration Morphine Sulfate 2 mg 10/28/20 23:34 10/29/20 04:22 Morphine 2 Mg/1 Ml Inj IV 2 mg Q4H PRN Administration Pain, Moderate (4-6) Ondansetron HCl 4 mg 10/28/20 23:34 10/29/20 04:26 Ondansetron 4 Mg/2 Ml Inj IV 4 mg Q8H PRN Administration Nausea And Vomiting Sodium Chloride 10 ml 10/28/20 23:45 10/29/20 09:41 Sodium Chloride 0.9% 10 Ml Flush Syringe IV 10 ml BID MOISÉS Administration Sodium Chloride 10 ml 10/28/20 23:34 Sodium Chloride 0.9% 10 Ml Flush Syringe IV PRN PRN LINE FLUSH
[2020-10-30] MEDS: KETOROLAC 30 MG/1 ML INJ IV SCH ×5 (00:20→23:33)
[2020-10-30] MEDS: PIPERACIL/TAZOBACTA 4.5/NS 100 4.5 GM/100 ML VIAL IV SCH ×4 (00:21→23:31)
--- NOTE | 2020-10-30 08:21 | Progress Note ---
Assessment and Plan Assessment and plan: 49-year-old female who is currently visiting from [place] was brought to the ER today with complaint of right upper quadrant pain that radiates to the back. The pain also involves her right shoulder. There is also right lower quadrant abdominal pain. Patient complained of mild nausea, no dysuria. Patient not sure if she is . No leg pain or leg swelling. Does not take oral contraceptives. No hematemesis of bright red blood per rectum. In the emergency room CT scan of the abdomen shows perirectal abscess 10/29: Patient to be evaluated by surgery and interventional radiology. 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 Nevertheless an ultrasound of the pelvic is being obtained and possible aspiration of fluids tomorrow. We will continue with antibiotics at this point no surgical intervention otherwise planned at this time. Patient denies any past medical condition denies use of any home medication. Plan of care discussed with the patient in detail patient verbalized understanding. 10/30: Patient was for CT-guided drainage. This was done under CT with no complication noted. Will await cultures at this time and discussed with surgeon for next steps. Plan discussed with the patient agrees with treatment plan continues on antibiotics at this (1) Acute abdominal pain Current Visit: Yes Status: Acute Plan to address problem: Patient was admitted to the hospital started on antibiotics and fluids as documented. Pepcid 20 mg IV every 12 hours. Morphine 2 mg IV every 4 hours as needed. Zofran 4 mg IV every 6 hours as needed. Zosyn 4.5 g IV every 8 hours. Metronidazole 500 mg IV every 8 hours. We consulted surgery for further evaluation and treatment. SCD for DVT prophylaxis. Pepcid for GI prophylaxis. Recheck CBC BMP in the morning (2) Perirectal abscess Current Visit: Yes Status: Acute Plan to address problem: (3) DVT and GI prophylaxis History Interval history: Patient seen and examined, continued with mild abdominal discomfort but much improved no fever noted. White count improved Hospitalist Physical - Physical exam Narrative exam: VITAL SIGNS: Reviewed. GENERAL: The patient appears normally developed, mild cachexia vital signs as documented. HEAD: No signs of head trauma. EYES: Pupils are equal. Extraocular motions intact. EARS: Hearing grossly intact. MOUTH: Oropharynx is normal. NECK: No adenopathy, no JVD. CHEST: Chest with clear breath sounds bilaterally. No wheezes, rales, or rhonchi. CARDIAC: Regular rate and rhythm. S1 and S2, without murmurs, gallops, or rubs. VASCULAR: No Edema. Peripheral pulses normal and equal in all extremities. ABDOMEN: Soft, mild tenderness but non distended. No rebound or guarding, and no masses palpated. Bowel Sounds normal. MUSCULOSKELETAL: Good range of motion of all major joints. Extremities without clubbing, cyanosis or edema. NEUROLOGIC EXAM: Alert and oriented x 3 No focal sensory or strength deficits. Speech normal. Follows commands. PSYCHIATRIC: Mood normal. SKIN: detail exam as documented in skin assessment - Constitutional Vitals: Temp Pulse Resp BP Pulse Ox 98.6 F 68 18 127/70 98 10/30/20 07:08 10/30/20 07:08 10/30/20 07:08 10/30/20 07:08 10/30/20 07:08 General appearance: Present: no acute distress Results - Labs CBC & Chem 7: 10/30/20 08:55 10/29/20 05:51 Labs: Laboratory Last Values WBC 12.1 K/mm3 (4.5-11.0) H 10/29/20 05:51 RBC 3.32 M/mm3 (3.65-5.03) L 10/29/20 05:51 Hgb 10.6 gm/dl (10.1-14.3) 10/29/20 05:51 Hct 31.4 % (30.3-42.9) 10/29/20 05:51 MCV 95 fl (79-97) 10/29/20 05:51 MCH 32 pg (28-32) 10/29/20 05:51 MCHC 34 % (30-34) 10/29/20 05:51 RDW 12.3 % (13.2-15.2) L 10/29/20 05:51 Plt Count 301 K/mm3 (140-440) 10/29/20 05:51 Lymph % (Auto) 8.7 % (13.4-35.0) L 10/29/20 05:51 [place] % (Auto) 3.9 % (0.0-7.3) 10/29/20 05:51 Eos % (Auto) 0.3 % (0.0-4.3) 10/29/20 05:51 Baso % (Auto) 0.5 % (0.0-1.8) 10/29/20 05:51 Lymph # (Auto) 1.1 K/mm3 (1.2-5.4) L 10/29/20 05:51 [place] # (Auto) 0.5 K/mm3 (0.0-0.8) 10/29/20 05:51 Eos # (Auto) 0.0 K/mm3 (0.0-0.4) 10/29/20 05:51 Baso # (Auto) 0.1 K/mm3 (0.0-0.1) 10/29/20 05:51 Seg Neutrophils % 86.6 % (40.0-70.0) H 10/29/20 05:51 Seg Neutrophils # 10.5 K/mm3 (1.8-7.7) H 10/29/20 05:51 PT 13.4 Sec. (12.2-14.9) 10/28/20 Unknown INR 1.04 (0.87-1.13) 10/28/20 Unknown Sodium 142 mmol/L (137-145) 10/29/20 05:51 Potassium 3.6 mmol/L (3.6-5.0) 10/29/20 05:51 Chloride 104.6 mmol/L (98-107) 10/29/20 05:51 Carbon Dioxide 28 mmol/L (22-30) 10/29/20 05:51 Anion Gap 13 mmol/L 10/29/20 05:51 BUN 10 mg/dL (7-17) 10/29/20 05:51 Creatinine 0.6 mg/dL (0.6-1.2) 10/29/20 05:51 Estimated GFR > 60 ml/min 10/29/20 05:51 BUN/Creatinine Ratio 17 % 10/29/20 05:51 Glucose 144 mg/dL (65-100) H 10/29/20 05:51 Lactic Acid 0.50 mmol/L (0.7-2.0) L 10/29/20 01:09 Calcium 8.9 mg/dL (8.4-10.2) 10/29/20 05:51 Total Bilirubin 0.30 mg/dL (0.1-1.2) 10/28/20 Unknown AST 10 units/L (5-40) 10/28/20 Unknown ALT 7 units/L (7-56) 10/28/20 Unknown Alkaline Phosphatase 71 units/L (35-129) 10/28/20 Unknown Total Protein 7.0 g/dL (6.3-8.2) 10/28/20 Unknown Albumin 4.3 g/dL (3.9-5) 10/28/20 Unknown Albumin/Globulin Ratio 1.6 % 10/28/20 Unknown Lipase 20 units/L (13-60) 10/28/20 Unknown HCG, Quant < 4.0 mIU/mL (0-4) 10/28/20 Unknown Urine Color Yellow (Yellow) 10/29/20 Unknown Urine Turbidity Cloudy (Clear) 10/29/20 Unknown Urine pH 6.0 (5.0-7.0) 10/29/20 Unknown Ur Specific [place] 1.029 (1.003-1.030) 10/29/20 Unknown Urine Protein 30 mg/dl mg/dL (Negative) 10/29/20 Unknown Urine Glucose (UA) Neg mg/dL (Negative) 10/29/20 Unknown Urine Ketones 20 mg/dL (Negative) 10/29/20 Unknown Urine Blood Neg (Negative) 10/29/20 Unknown Urine Nitrite Neg (Negative) 10/29/20 Unknown Urine Bilirubin Neg (Negative) 10/29/20 Unknown Urine Urobilinogen < 2.0 mg/dL (<2.0) 10/29/20 Unknown Ur Leukocyte Esterase Lg (Negative) 10/29/20 Unknown Urine WBC (Auto) > 182.0 /HPF (0.0-6.0) H 10/29/20 Unknown Urine RBC (Auto) 6.0 /HPF (0.0-6.0) 10/29/20 Unknown U Epithel Cells (Auto) 2.0 /HPF (0-13.0) 10/29/20 Unknown Urine WBC Clumps 2+ /HPF 10/29/20 Unknown Urine Mucus Few /HPF 10/29/20 Unknown Blood Type A POSITIVE 10/29/20 01:11 Antibody Screen Negative 10/29/20 01:11 Microbiology: Microbiology 10/29/20 01:09 Peripheral/Venous Blood Culture - Preliminary NO GROWTH AFTER 24 HOURS 10/29/20 01:44 Peripheral/Venous Blood Culture - Preliminary NO GROWTH AFTER 24 HOURS Garrett/IV: Voiding Method Toilet Active Medications - Current Medications Current Medications: Generic Name Dose Route Start Last Admin Trade Name Freq PRN Reason Stop Dose Admin Acetaminophen 650 mg 10/28/20 23:34 Acetaminophen 325 Mg Tab PO Q4H PRN Pain MILD(1-3)/Fever >100.5/MCALLISTER Famotidine 20 mg 10/29/20 08:00 10/29/20 22:00 Famotidine 20 Mg/2 Ml Inj IV 20 mg BID MOISÉS Administration Dextrose/Sodium Chloride 1,000 mls @ 100 mls/hr 10/28/20 23:45 10/29/20 14:37 D5/0.45ns IV 100 mls/hr DIRECT MOISÉS Administration Piperacillin Sod/Tazobactam Sod 4.5 gm in 100 mls @ 200 mls/hr 10/29/20 00:00 10/30/20 00:21 Zosyn/Ns 4.5gm/100ml IV 200 mls/hr Q8H MOISÉS Administration Protocol Ketorolac Tromethamine 30 mg 10/29/20 12:00 10/30/20 05:56 Ketorolac 30 Mg/1 Ml Inj IV 11/03/20 11:59 30 mg Q6HR MOISÉS Administration Morphine Sulfate 2 mg 10/28/20 23:34 10/29/20 04:22 Morphine 2 Mg/1 Ml Inj IV 2 mg Q4H PRN Administration Pain, Moderate (4-6) Ondansetron HCl 4 mg 10/28/20 23:34 10/29/20 04:26 Ondansetron 4 Mg/2 Ml Inj IV 4 mg Q8H PRN Administration Nausea And Vomiting Sodium Chloride 10 ml 10/28/20 23:45 10/30/20 00:21 Sodium Chloride 0.9% 10 Ml Flush Syringe IV 10 ml BID OMISÉS Administration Sodium Chloride 10 ml 10/28/20 23:34 Sodium Chloride 0.9% 10 Ml Flush Syringe IV PRN PRN LINE FLUSH
[2020-10-30 09:24] LABS: Basophils # (Auto) 0.1 K/mm3 (0.0-0.1); Basophils % (Auto) 0.7 % (0.0-1.8); Eosinophils # (Auto) 0.3 K/mm3 (0.0-0.4); Hematocrit 33.3 % (30.3-42.9); Hemoglobin 11.2 gm/dl (10.1-14.3); Lymphocytes # (Auto) 2.2 K/mm3 (1.2-5.4); Lymphocytes % (Auto) 20.9 % (13.4-35.0); Mean Corpuscular HGB Conc 34 % (30-34); Mean Corpuscular Volume 95 fl (79-97); Monocytes # (Auto) 0.7 K/mm3 (0.0-0.8); Monocytes % (Auto) 6.4 % (0.0-7.3); Platelet Count 374 K/mm3 (140-440); Red Blood Count 3.49 M/mm3 (3.65-5.03); Red Cell Distribution Width 12.6 % (13.2-15.2)
[2020-10-30] MEDS: FAMOTIDINE 20 MG/2 ML INJ IV SCH ×2 (09:28→21:48)
[2020-10-30] MEDS ORDERED: fentaNYL 100 MCG/2 ML INJ IV NR (12:12)
[2020-10-30] MEDS ORDERED: MIDAZOLAM 5 MG/5 ML INJ MDV IV NR (12:12)
[2020-10-30] MEDS ORDERED: MIDAZOLAM 5 MG/5 ML INJ MDV IV ONE (12:15)
[2020-10-30] MEDS ORDERED: fentaNYL 100 MCG/2 ML INJ ONE (12:16)
[2020-10-30] MEDS ORDERED: SODIUM CHLORIDE 0.9% 500 ML 500 ML ONE (12:17)
--- NOTE | 2020-10-30 13:25 | Operative Report ---
Operative Report Operative Report: EXAM: CT guided transgluteal right sided 8 [place] pelvic drain placement CLINICAL INDICATION: Leukocytosis in a patient with pelvic fluid collection, vaginal discharge, and right upper quadrant pain. DATE: 10/30/2019 PROTEIN CHEMIST: HORTENCIA FLORES MD MEDICATIONS: Local anesthesia with a single dose of 50 micrograms of fentanyl was performed under guidance of radiologic nursing. Continuous cardiopulmonary monitoring was utilized. PROCEDURE: Following an explanation of the risks, benefits and alternatives; written informed consent was obtained. The patient was brought to the CT suite and placed in the prone position on the CT table. [facility] CT was performed of the abdomen and pelvis. After determining the appropriate site, the skin was infiltrated with lidocaine and a finder needle was placed. Intermittent CT was performed until the desired position was identified. The 18 gauge trocar needle was inserted into the right pelvic fluid collection from a right sided transgluteal approach. J wire was then advanced through the needle and into the collection. The needle was exchanged for multiple dilators that were used to serially dilate over the wire. A 8 Fr APD drain was advanced over the wire and metal stiffener. The metal stiffener and wire were removed. CT scanning was performed. The pigtail was secured and aspirated until no more material could be aspirated. Sterile bandage was applied. The patient tolerated the procedure well. There were no immediate postprocedural complications. FINDINGS: 1. Initial CT demonstrates a small right pelvic fluid collection. There is a satisfactory window for CT drainage from a right transgluteal approach. 2. Intermittent CT demonstrates the 18 gauge needle was placed in the fluid collection. 3. Wire is coiled in the pelvic fluid collection. 4. CT documents placement of a 8 Fr drain in the pelvic fluid collection. The collection was near completely collapsed/drained. 5. A total of approximately 5 mL of serous material was aspirated through the drain and initial needle. There is also fluid in the tubing of the uracil aldo inage bag. IMPRESSION: Successful CT guided 8 [place] drain placement in a small right pelvic fluid collection.
--- NOTE | 2020-10-30 13:26 | Ultrasound Report ---
ULTRASOUND PELVIS INDICATION: pelvic pain, vaginal discharge. TECHNIQUE: Transabdominal. Duplex Color Doppler used: Yes. COMPARISON: None available FINDINGS: Uterus: Present. Size: 9.5 x 3.9 x 5.2 cm. Endometrial complex: Normal measuring 0.3 cm. Mass lesions: None. Additional findings: None. Right Ovary: Size: 4.8 x 3.5 x 2.6 cm Blood flow: Normal. Cyst or mass: None. Left Ovary: Size: 4.2 x 2.4 x 2.2 cm Blood flow: Normal. Cyst or mass: None. Urinary Bladder: Normal. Free Fluid: None. Additional Findings: None. IMPRESSION: 1. No significant sonographic abnormality of the pelvis. Signer Name: Parish Taylor MD Signed: 10/30/2020 1:21 PM Workstation Name: [id number]
[2020-10-30] MEDS: MORPHINE 2 MG/1 ML INJ IV PRN ×2 (13:41→21:53)
--- NOTE | 2020-10-30 16:06 | Progress Note ---
Assessment and Plan 49 year old female with abdominal pain of unclear etiology but unlikely to be of GI source, and more likely gynecological in nature. Afebrile and stable with pain improved and normalization of leukocytosis. will remove drain in am, and pt can be discharged after drain removal. Pt told to follow up with certified nurse operating room. Subjective Date of service: 10/30/20 Narrative: no acute events overnight. Pt says that her pain is much better and she is feeling improved. IR placed a drain in the fluid collection that he described as greenish consistent with cyst fluid. Objective Vital Signs - 12hr 10/30/20 10/30/20 10/30/20 05:56 06:06 06:26 Temperature 98.4 F Pulse Rate 58 L Respiratory 17 18 17 Rate Blood Pressure 114/56 O2 Sat by Pulse 99 Oximetry 10/30/20 10/30/20 10/30/20 07:08 13:35 15:17 Temperature 98.6 F 98.0 F 97.6 F Pulse Rate 68 60 72 Respiratory 18 18 16 Rate Blood Pressure 127/70 138/77 119/74 O2 Sat by Pulse 98 99 99 Oximetry - General physical appearance well developed, well nourished, no distress, no pain - Respiratory normal expansion - Abdomen soft, not tender - Additional Exam drain in place via buttock, serous fluid in tubing - Labs 10/30/20 08:55 10/29/20 05:51
[2020-10-30] MEDS: D5W/0.45% NACL 1,000 ML IV SCH (22:06)
[2020-10-31] MEDS: MORPHINE 2 MG/1 ML INJ IV PRN (04:16)
[2020-10-31] MEDS: KETOROLAC 30 MG/1 ML INJ IV SCH (06:13)
[2020-10-31 06:28] VITALS: BP 128/75
--- NOTE | 2020-10-31 08:33 | Discharge Summary ---
Providers - Providers Date of Admission: 10/29/20 11:20 Attending physician: JACINTA RUEDA MD 10/28/20 22:56 Consult to Physician [CONS] Urgent Comment: Dr. Gordon spoke with Dr. Johnson @ 0011 Consulting Provider: TACO JOHNSON Physician Instructions: Reason For Exam: acute intraabdominal abscess Hospitalization Reason for admission: Abdominal pain Condition: Good Hospital course: 49-year-old female who is currently visiting from [place] was brought to the ER today with complaint of right upper quadrant pain that radiates to the back. The pain also involves her right shoulder. There is also right lower quadrant abdominal pain. Patient complained of mild nausea, no dysuria. Patient not sure if she is . No leg pain or leg swelling. Does not take oral contraceptives. No hematemesis of bright red blood per rectum. In the emergency room CT scan of the abdomen shows perirectal abscess 10/29: Patient to be evaluated by surgery and interventional radiology. There is some concern that the imaging may be an over read and possibly patient will need an outpatient FLANGING MACHINE OPERATOR evaluation. Nevertheless an ultrasound of the pelvic is being obtained and possible aspiration of fluids tomorrow. We will continue with antibiotics at this point no surgical intervention otherwise planned at this time. Patient denies any past medical condition denies use of any home medication. Plan of care discussed with the patient in detail patient verbalized understanding. 10/30: Patient was for CT-guided drainage. This was done under CT with no com plication noted. Will await cultures at this time and discussed with surgeon for next steps. Plan discussed with the patient agrees with treatment plan continues on antibiotics at this 10/31: Continues to show clinical improvement. PER Surgery, bella to be removed today and will discharge to follow with FLANGING MACHINE OPERATOR outpatient. Pain control No abx need following discussion with consultants for discharge. (1) Acute abdominal pain Current Visit: Yes Status: Acute Plan to address problem: Patient was admitted to the hospital started on antibiotics and fluids as documented. Pepcid 20 mg IV every 12 hours. Morphine 2 mg IV every 4 hours as needed. Zofran 4 mg IV every 6 hours as needed. Zosyn 4.5 g IV every 8 hours. Metronidazole 500 mg IV every 8 hours. We consulted surgery for further evaluation and treatment. SCD for DVT prophylaxis. Pepcid for GI prophylaxis. Recheck CBC BMP in the morning (2) Perirectal abscess Current Visit: Yes Status: Acute Plan to address problem: (3) gynecological cyst Disposition: DC-01 TO HOME OR SELFCARE Time spent for discharge: 35 minutes Core Measure Documentation - Palliative Care Palliative Care/ Comfort Measures: Not Applicable - Core Measures Any of the following diagnoses?: none Exam - Physical Exam Narrative exam: VITAL SIGNS: Reviewed. GENERAL: The patient appears normally developed, mild cachexia vital signs as documented. HEAD: No signs of head trauma. EYES: Pupils are equal. Extraocular motions intact. EARS: Hearing grossly intact. MOUTH: Oropharynx is normal. NECK: No adenopathy, no JVD. CHEST: Chest with clear breath sounds bilaterally. No wheezes, rales, or rhonchi. CARDIAC: Regular rate and rhythm. S1 and S2, without murmurs, gallops, or rubs. VASCULAR: No Edema. Peripheral pulses normal and equal in all extremities. ABDOMEN: Soft, non tenders but non distended. No rebound or guarding, and no masses palpated. Bowel Sounds normal. MUSCULOSKELETAL: Good range of motion of all major joints. Extremities without clubbing, cyanosis or edema. NEUROLOGIC EXAM: Alert and oriented x 3 No focal sensory or strength deficits. Speech normal. Follows commands. PSYCHIATRIC: Mood normal. SKIN: detail exam as documented in skin assessment - Constitutional Vitals: Temp Pulse Resp BP Pulse Ox 98.2 F 70 18 128/75 99 10/31/20 06:09 10/31/20 06:09 10/31/20 06:09 10/31/20 06:09 10/31/20 07:44 Plan Activity: advance as tolerated, fall precautions Diet: low fat Special Instructions: record daily weights Additional Instructions: Follow with Primary FLANGING MACHINE OPERATOR doctor IN 2-3 DAYS Follow up with: PRIMARY CAREMD [Referring] - 3-5 Days Prescriptions: oxyCODONE /ACETAMINOPHEN [Percocet 5/325] 1 tab PO Q6HR PRN #10 tablet PRN Reason: Pain
[2020-10-31] MEDS ORDERED: FAMOTIDINE 20 MG TAB PO SCH (10:15)
--- NOTE | 2020-10-31 10:38 | Progress Note ---
Assessment and Plan 49 year old female with abdominal pain of unclear etiology but unlikely to be of GI source, and more likely gynecological in nature. Afebrile and stable with pain improved and normalization of leukocytosis. Drain is removed. She can be discharged to home. Pt instructed to follow up with watch leader as outpatient. Subjective Date of service: 10/31/20 Patient Reports: Positive: feels better, pain is less (no acute events overnight. Pt says she feels much better. She is ready to go home.) Objective Vital Signs - 12hr 10/31/20 10/31/20 06:09 07:44 Temperature 98.2 F Pulse Rate 70 Respiratory 18 Rate Blood Pressure 128/75 O2 Sat by Pulse 97 99 Oximetry - General physical appearance well developed, no distress, no pain - Respiratory normal expansion - Abdomen soft, not tender, not distended, not rebound, not guarding, not rigid (pelvic US unremarkable for pathology), other (trans gluteal drain with small amount serous fluid) - Labs 10/30/20 08:55 10/29/20 05:51
== END 2020-10-31 12:30 | disposition home or self-care (01) | DRG 394 ==
LOC: ED 18:56 → 3A 23:11 → 3B-SURG 10-29 02:12 → 3B 10-29 02:39 → OBSVTOIN 10-29 11:20
PROVIDERS: ADMIT Hospitalist; ATTEND Internal Medicine
PROC: 0W9J30Z Drainage of Pelvic Cavity with Drainage Device, Percutaneous Approach (ICD-10-PCS; principal; 2020-10-30)
DX: K61.1 Rectal abscess (principal); N30.00 Acute cystitis without hematuria; Z79.899 Other long term (current) drug therapy
CPT/HCPCS: 10160; 36415; 71045; 74177; 76856; 77012; 80048; 80053; 81001; 82140; 83690; 84702; 85025; 85610; 86850; 86900; 86901; 87040; 87116; 93005; 96374; 96375; 96376; G0378; C1769; J1170; J1335; J1885; J2250; J2270; J2405; J2543; J2765; J3010; J7030; J7040; Q9967